=== PATIENT | male | born 1965 | race American Indian/Alaskan Native ===

== ENCOUNTER 2018-01-04 19:41 | Emergency (ER) | payer BC ==
[2018-01-04 20:04] VITALS: BP 134/77; PULSE 83; RESP 16; TEMP 98.6; O2SAT 95; BMI 30.9
--- NOTE | 2018-01-04 20:25 | ED PDOC ---
Arrival/HPI - General Chief Complaint: Flu-like Symptoms Time Seen by Provider: 01/04/18 19:48 Historian: Patient - History of Present Illness Narrative History of Present Illness (Text): 01/04/18 20:25 A 52 year old male, whose past medical history includes type 2 diabetes, presents to the emergency department complaining of flu-like symptoms for the past few days. Patient reports chills, body aches, congestion, cough, sore throat and headache. He notes an episode of dizziness and blurry vision earlier , which has resolved. Patient reports decrease appetite but states he has been drinking plenty of fluids. Patient denies any fever, nausea, vomiting, abdominal pain, chest pain, shortness of breath or any other complaints. PMD: Dr. Zhao Time/Duration: Other (few days) Symptom Course: Unchanged Context: Home Past Medical History - Provider Review Nursing Documentation Reviewed: Yes - Endocrine/Metabolic Hx Diabetes Mellitus Type 2: Yes - Psychiatric Hx Substance Use: No Family/Social History - Physician Review Nursing Documentation Reviewed: Yes Family/Social History: No Known Family HX Smoking Status: Never Smoked Hx Alcohol Use: No Hx Substance Use: No Allergies/Home Meds Allergies/Adverse Reactions: Allergies morphine Allergy (Verified 01/04/18 20:02) RASH peanut Allergy (Verified 01/04/18 20:02) RASH Home Medications: Home Meds Medication Instructions Recorded Confirmed Aspirin [Adult Low Dose Aspirin EC] 81 mg PO DAILY 06/26/16 06/26/16 Canagliflozin/Metformin HCl 1 tab PO BID 06/26/16 06/26/16 [Invokamet 50-500 mg Tablet] Pravastatin Sodium [Pravachol] 20 mg PO DAILY 06/26/16 06/26/16 Review of Systems - Physician Review All systems were reviewed & negative as marked: Yes - Review of Systems Constitutional: Night Sweats. absent: Fevers Eyes: Vision Changes (blurry vision in left eye, which has resolved) ENT: Sore Throat, Sinus Congestion Respiratory: Cough. absent: SOB Cardiovascular: absent: Chest Pain Gastrointestinal: Appetite Changes. absent: Abdominal Pain, Nausea, Vomiting Musculoskeletal: Myalgias Neurological: Headache Physical Exam Vital Signs Reviewed: Yes Vital Signs Temp Pulse Resp BP Pulse Ox 01/04/18 20:01 98.6 F 83 16 134/77 95 Temperature: Afebrile Blood Pressure: Normal Pulse: Regular Respiratory Rate: Normal Appearance: Positive for: Well-Appearing, Non-Toxic, Comfortable Pain Distress: None Mental Status: Positive for: Alert and Oriented X 3 - Systems Exam Head: Present: Atraumatic, Normocephalic Pupils: Present: PERRL, Other (Visual Acuity 20/20 b/l with glasses) Extroacular Muscles: Present: EOMI Conjunctiva: Present: Normal Ears: Present: Normal, NORMAL TM, Normal Canal. No: Erythema, TM Bulging, Fluid , TM Perf Mouth: Present: Moist Mucous Membranes Pharnyx: Present: Other (post nasal drip). No: ERYTHEMA, EXUDATE, TONSILS ENLARGED Nose (Internal): Present: Other (nasal congestion) Neck: Present: Normal Range of Motion Respiratory/Chest: Present: Clear to Auscultation, Good Air Exchange. No: Respiratory Distress, Accessory Muscle Use Cardiovascular: Present: Regular Rate and Rhythm, Normal S1, S2. No: Murmurs Abdomen: Present: Normal Bowel Sounds. No: Tenderness, Distention, Peritoneal Signs Upper Extremity: Present: Normal Inspection. No: Cyanosis, Edema Lower Extremity: Present: Normal Inspection. No: Edema Neurological: Present: GCS=15, CN II-XII Intact, Speech Normal Skin: Present: Warm, Dry, Normal Color. No: Rashes Psychiatric: Present: Alert, Oriented x 3, Normal Insight, Normal Concentration Medical Decision Making ED Course and Treatment: 01/04/18 20:25 Impression: A 52 year old male with chills, body aches, cough, congestion, sore throat and headache Differential Diagnosis included but are not limited to: Influenza Plan: -- Chest xray -- Tamiflu and Robitussin -- Reassess and disposition Progress Notes: Centor score of 0. No indication for antibiotic for sore throat. Plan is to start on Tamiflu, due to diabetic history and symptoms. 01/04/18 22:23 CXR negative for PNA. Feeling a little better. Will have patient f/u with PMD. Advised to return to the ED if symptoms worsen or any other concerns. 01/04/18 22:24 Orthostatics normal. - Lab Interpretations Lab Results: Lab Results 01/04/18 20:44: POC Glucose (mg/dL) 252 H - RAD Interpretation Radiology Orders: 01/04/18 20:26 CXR [CHEST TWO VIEWS (PA/LAT)] [RAD] Stat - Medication Orders Current Medication Orders: Discontinued Medications Guaifenesin/Dextromethorphan (Robitussin Dm) 10 ml PO STAT STA Stop: 01/04/18 20:28 Last Admin: 01/04/18 20:47 Dose: 10 ml Oseltamivir Phosphate (Tamiflu Cap) 75 mg PO STAT STA PRN Reason: Protocol Stop: 01/04/18 20:27 Last Admin: 01/04/18 20:45 Dose: 75 mg - Scribe Statement The provider has reviewed the documentation as recorded by the Scribe Amber Epperson Provider Scribe Attestation: All medical record entries made by the Scribe were at my direction and personally dictated by me. I have reviewed the chart and agree that the record accurately reflects my personal performance of the history, physical exam, medical decision making, and the department course for this patient. I have also personally directed, reviewed, and agree with the discharge instructions and disposition. Disposition/Present on Arrival - Present on Arrival Any Indicators Present on Arrival: No History of DVT/PE: No History of Uncontrolled Diabetes: No Urinary Catheter: No History of Decub. Ulcer: No History Surgical Site Infection Following: None - Disposition Have Diagnosis and Disposition been Completed?: Yes Diagnosis: Influenza Disposition: HOME/ ROUTINE Disposition Time: 21:01 Patient Plan: Discharge Patient Problems: Current Active Problems Problem Status Onset Influenza Acute Condition: IMPROVED Discharge Instructions (ExitCare): Flu, Adult (DC) Additional Instructions: Mr Reno, thank you for letting us take care of you today. Your provider was Dr. Alcaraz. You were treated for Influenza-like illness. The emergency medical care you received today was directed at your acute symptoms. If you were prescribed any medication, please fill it and take as directed. It may take several days for your symptoms to resolve. Return to the Emergency Department if your symptoms worsen, do not improve, or if you have any other problems. Please contact your doctor or call one of the physicians/clinics you have been referred to that are listed on the Patient Visit Information form that is included in your discharge packet. Bring any paperwork you were given at discharge with you along with any medications you are taking to your follow up visit. Our treatment cannot replace ongoing medical care by a primary care provider (PCP) outside of the emergency department. Thank you for allowing the [facility] team to be part of your care today. If you had an X-Ray or CT scan: A Radiologist will review the ED reading if any change in treatment is needed we will contact you. If you had a blood, urine, or wound culture: It will take several days for the results, if any change in treatment is needed we will contact you. If you had an STI test: It will take 48 hours for the results. Please call after 1 week if you have not heard back. Prescriptions: guaiFENesin/Dextromethorphan [guaiFENesin-DM] 10 ml PO Q8 #1 bottle Oseltamivir Phosphate [Tamiflu] 75 mg PO BID #10 capsule Referrals: Ravi Zhao MD [Primary Care Provider] - Follow up with primary Forms: [employer] ([place]), WORK NOTE
[2018-01-04] MEDS ORDERED: guaiFENesin DM 200 mg-20 mg/10 ml UD PO STA (20:27)
--- NOTE | 2018-01-05 08:46 | RAD ---
HISTORY: Cough, pneumonia. COMPARISON: No prior. TECHNIQUE: Chest PA and lateral FINDINGS: LUNGS: No active pulmonary disease. PLEURA: No significant pleural effusion identified. No pneumothorax apparent. CARDIOVASCULAR: Normal. OSSEOUS STRUCTURES: No significant abnormalities. VISUALIZED UPPER ABDOMEN: Normal. OTHER FINDINGS: None. IMPRESSION: No active disease. Concordant results with the preliminary interpretation rendered by the emergency department physician procedure.
== END 2018-01-04 21:47 | disposition home or self-care (01) ==
LOC: ED 19:41
DX: J11.1 Influenza due to unidentified influenza virus with other respiratory manifestations (principal); E11.9 Type 2 diabetes mellitus without complications

== ENCOUNTER 2018-02-01 09:28 | Emergency (ER) | payer BC ==
[2018-02-01 09:32] VITALS: BMI 30.9
--- NOTE | 2018-02-01 10:12 | ED PDOC ---
Arrival/HPI - General Chief Complaint: GI Problem Time Seen by Provider: 02/01/18 09:35 Historian: Patient - History of Present Illness Narrative History of Present Illness (Text): 02/01/18 10:08 52yo male with Past medical history of NIDDM who present with complaint of nausea, nonbloody/bilious vomiting x 3 and diarrhea since this morning. Also report right shoulder blade pain with deep inspiration since this morning. states mild epigastric pain and blade pain started while vomiting. Reports mild intermittent dry cough, that has been going on for weeks now. He states he was treated for flu here last month. He denies dizziness, chest pain, shortness of breath, fever, chills, urinary symptoms, sick contact, travel, any other complaint. Past Medical History - Provider Review Nursing Documentation Reviewed: Yes - Cardiac Hx Cardiac Disorders: Yes - Pulmonary Hx Respiratory Disorders: No - Neurological Hx Neurological Disorder: No - HEENT Hx HEENT Disorder: No - Renal Hx Renal Disorder: No - Endocrine/Metabolic Hx Endocrine Disorders: Yes Hx Diabetes Mellitus Type 2: Yes - Hematological/Oncological Hx Blood Disorders: No - Integumentary Hx Dermatological Disorder: No - Musculoskeletal/Rheumatological Hx Musculoskeletal Disorders: No - Gastrointestinal Hx Gastrointestinal Disorders: No - Genitourinary/Gynecological Hx Genitourinary Disorders: No - Psychiatric Hx Psychophysiologic Disorder: No Hx Substance Use: No - Surgical History Other/Comment: VASECTOMY Family/Social History - Physician Review Nursing Documentation Reviewed: Yes Family/Social History: Unknown Family HX Smoking Status: Never Smoked Hx Alcohol Use: No Hx Substance Use: No Allergies/Home Meds Allergies/Adverse Reactions: Allergies morphine Allergy (Verified 02/01/18 09:33) RASH peanut Allergy (Verified 02/01/18 09:33) RASH Home Medications: Home Meds Medication Instructions Recorded Confirmed Canagliflozin/Metformin HCl 1 tab PO BID 06/26/16 02/01/18 [Invokamet 50-500 mg Tablet] Pravastatin Sodium [Pravachol] 20 mg PO DAILY 06/26/16 02/01/18 Review of Systems - Physician Review All systems were reviewed & negative as marked: Yes - Review of Systems Constitutional: Normal Eyes: Normal ENT: Normal Respiratory: Normal Cardiovascular: Normal Gastrointestinal: Abdominal Pain, Diarrhea, Nausea, Vomiting. absent: Constipation, Hematochezia, Hematemesis Genitourinary Male: Normal Musculoskeletal: Back Pain Skin: Normal Neurological: Normal Endocrine: Normal Hemo/Lymphatic: Normal Psychiatric: Normal Physical Exam Vital Signs Reviewed: Yes Vital Signs Temp Pulse Resp BP Pulse Ox 02/01/18 13:40 98 F 80 18 112/76 99 02/01/18 11:30 78 18 121/77 99 02/01/18 09:44 98.6 F 99 H 17 131/81 95 Temperature: Afebrile Blood Pressure: Normal Pulse: Regular Respiratory Rate: Normal Appearance: Positive for: Well-Appearing, Non-Toxic, Comfortable Pain Distress: None Mental Status: Positive for: Alert and Oriented X 3 - Systems Exam Head: Present: Atraumatic, Normocephalic Pupils: Present: PERRL Extroacular Muscles: Present: EOMI Conjunctiva: Present: Normal Mouth: Present: Moist Mucous Membranes Neck: Present: Normal Range of Motion Respiratory/Chest: Present: Clear to Auscultation, Good Air Exchange. No: Respiratory Distress, Accessory Muscle Use, Wheezes, Decreased Breath Sounds, Rales, Retracting, Rhonchi, Tachypneic Cardiovascular: Present: Regular Rate and Rhythm, Normal S1, S2. No: Murmurs Abdomen: Present: Other (soft). No: Tenderness, Distention, Peritoneal Signs, Rebound, Guarding, McBurney's Point Tender, Rovsing's Sign Present Back: Present: Paraspinal Tenderness (Right parathoracic/scapular). No: Midline Tenderness, Pain with Leg Raise Upper Extremity: Present: Normal Inspection. No: Cyanosis, Edema Lower Extremity: Present: Normal Inspection. No: Edema Neurological: Present: GCS=15, CN II-XII Intact, Speech Normal Skin: Present: Warm, Dry, Normal Color. No: Rashes Psychiatric: Present: Alert, Oriented x 3, Normal Insight, Normal Concentration Medical Decision Making ED Course and Treatment: 02/01/18 19:41 Pt presented for stated history. He was hemodynamically stable in Emergency department. He was noted tolerated PO fluid in Emergency department. His lab was reviewed without leukocytosis. His BS was 267 and he was hydrated with a liter of NS. He did not take his hypoglycemics and was advised to take it at home. Thoracic spine - Negative chest xray - NAD All result was DW the pt. He was DC home with Zofran, pepcid and ibuprofen for MS pain. Advised to follow BLAND diet. Referred to his PMD. - Lab Interpretations Lab Results: 02/01/18 11:25 02/01/18 11:25 Lab Results 02/01/18 11:25: Sodium 138, Potassium 4.3, Chloride 100, Carbon Dioxide 27, Anion Gap 16, BUN 17, Creatinine 0.9, Est GFR ( Amer) > 60, Est GFR (Non- Af Amer) > 60, Random Glucose 256 H, Calcium 10.3, Total Bilirubin 0.6, AST 39, ALT 54, Alkaline Phosphatase 60, Lactate Dehydrogenase 394, Total Creatine Kinase 265 H, CK-MB (CK-2) 2.3, CK-MB (CK-2) % Cancelled, Troponin I < 0.01, Total Protein 7.6, Albumin 4.5, Globulin 3.1, Albumin/Globulin Ratio 1.4, Amylase 62, Lipase 199 02/01/18 11:25: PT 10.9, INR 0.95, APTT 27.8 02/01/18 11:25: WBC 10.8, RBC 5.19, Hgb 15.6, Hct 45.3, MCV 87.3, MCH 30.1, MCHC 34.4, RDW 13.8, Plt Count 184, MPV 11.3 H, Gran % 84.2 H, Lymph % (Auto) 9.2 L, Eagle % (Auto) 5.9, Eos % (Auto) 0.6 L, Baso % (Auto) 0.1, Gran # 9.06 H, Lymph # (Auto) 1.0 L, Eagle # (Auto) 0.6, Eos # (Auto) 0.1, Baso # (Auto) 0.01 - RAD Interpretation Radiology Orders: 02/01/18 10:15 CHEST TWO VIEWS (PA/LAT) [RAD] Stat DORSAL (THORACIC) SPINE [RAD] Stat - Medication Orders Current Medication Orders: Discontinued Medications Famotidine (Pepcid) 20 mg IVP STAT STA Stop: 02/01/18 10:14 Last Admin: 02/01/18 11:00 Dose: 20 mg IVP Administration Document 02/01/18 11:00 BRETT (Rec: 02/01/18 11:16 BRETT [id number]) Charges for Administration # of IVP Administrations 1 Sodium Chloride (Sodium Chloride 0.9%) 1,000 mls @ 999 mls/hr IV .Q1H1M STA Stop: 02/01/18 11:14 Last Admin: 02/01/18 10:50 Dose: 999 mls/hr eMAR Start Stop Document 02/01/18 10:50 SZA (Rec: 02/01/18 11:17 BRETT [email or web address]) Intravenous Solution Start Date 02/01/18 Start Time 10:50 End Date 02/01/18 End time 11:50 Total Infusion Time 60 Ketorolac Tromethamine (Toradol) 30 mg IVP STAT STA Stop: 02/01/18 13:14 Last Admin: 02/01/18 13:30 Dose: [address] [facility] Pain Assessment Document 02/01/18 13:30 SZA (Rec: 02/01/18 14:18 BRETT [id number]) Pain Reassessment Is this a pain reassessment? No Sleep Is patient sleeping during reassessment? No Presence of Pain Presence of Pain Yes IVP Administration Document 02/01/18 13:30 SZA (Rec: 02/01/18 14:18 BRETT [email or web address]) Charges for Administration # of IVP Administrations 1 Re-Assess: [facility] Pain Assessment Document 02/01/18 14:30 SZA (Rec: 02/01/18 14:55 BRETT [email or web address]) Pain Reassessment Is this a pain reassessment? No Sleep Is patient sleeping during reassessment? No Presence of Pain Presence of Pain No Ondansetron HCl (Zofran Inj) 4 mg IVP STAT STA Stop: 02/01/18 10:14 Last Admin: 02/01/18 11:00 Dose: 4 mg IVP Administration Document 02/01/18 11:00 SZA (Rec: 02/01/18 11:15 BRETT [email or web address]) Charges for Administration # of IVP Administrations 1 Disposition/Present on Arrival - Present on Arrival Any Indicators Present on Arrival: No History of DVT/PE: No History of Uncontrolled Diabetes: Yes Urinary Catheter: No History of Decub. Ulcer: No History Surgical Site Infection Following: None - Disposition Have Diagnosis and Disposition been Completed?: Yes Diagnosis: Nausea vomiting and diarrhea, Thoracic back sprain Disposition: HOME/ ROUTINE Disposition Time: 13:20 Patient Plan: Discharge Condition: STABLE Discharge Instructions (ExitCare): Acute Abdomen (Belly Pain), Nausea and Vomiting, Adult (DC) Additional Instructions: Follow BLAND diet for 24hrs Follow up with your Doctor Return to Emergency department for any new or worsening symptoms Prescriptions: Benzonatate [Tessalon Perle] 100 mg PO TID #20 capsule Famotidine [Pepcid] 40 % PO DAILY #10 tab Ibuprofen [Motrin Tab] 600 mg PO Q6 #15 tab Ondansetron ODT [Zofran ODT] 4 mg PO Q6 #6 odt Referrals: Ravi Zhao MD [Primary Care Provider] - Follow up with primary Forms: [employer] ([place]), WORK NOTE
[2018-02-01] MEDS ORDERED: Sodium Chloride 0.9% 1,000 ML IV STA (10:14)
[2018-02-01 11:30] LABS: BASO # 0.01 K/mm3 (0.0-2.0); BASO % 0.1 % (0.0-3.0); EOS # 0.1 (0.0-0.7); EOS % 0.6 % (1.5-5.0); GRAN # 9.06 (1.4-6.5); GRAN % 84.2 % (50.0-68.0); HEMOGLOBIN 15.6 g/dL (14.0-18.0); LYMPH % 9.2 % (22.0-35.0); MEAN CELL VOLUME 87.3 fl (80.0-105.0); MEAN CORPUSCULAR HEMOGLOBIN 30.1 pg (25.0-35.0); MEAN CORPUSCULAR HGB CONC 34.4 g/dl (31.0-37.0); MEAN PLATELET VOLUME 11.3 fl (7.0-11.0); MONO # 0.6 (0.1-0.6); MONO % 5.9 % (1.0-6.0); RBC 5.19 10^6/uL (3.5-6.1); RED CELL DISTRIBUTION WIDTH 13.8 % (11.5-14.5); WHITE BLOOD COUNT 10.8 10^3/ul (4.5-11.0)
[2018-02-01 11:42] LABS: INR 0.95 (0.93-1.08); PARTIAL THROMBOPLASTIN TIME 27.8 Seconds (25.1-36.5); PROTHROMBIN TIME 10.9 SECONDS (9.4-12.5)
[2018-02-01 11:44] LABS: ALB/GLOB RATIO 1.4 (1.1-1.8); ALBUMIN 4.5 g/dL (3.0-4.8); ALT/SGPT 54 U/L (7-56); AMYLASE 62 U/L (35-125); AST/SGOT 39 U/L (17-59); BLOOD UREA NITROGEN 17 mg/dL (7-21); CALCIUM 10.3 mg/dL (8.4-10.5); GFR AFRICAN-AMERICAN > 60; GFR NON-AFRICAN AMERICAN > 60; LIPASE 199 U/L (23-300)
[2018-02-01 11:56] LABS: TROPONIN I < 0.01 ng/mL
[2018-02-01 12:00] LABS: CK-MB 2.3 ng/mL (0.0-3.6)
--- NOTE | 2018-02-01 13:10 | RAD ---
HISTORY: cough COMPARISON: No prior. TECHNIQUE: Chest PA and lateral FINDINGS: LUNGS: No acute infiltrate bilaterally. Trace linear atelectasis or fibrosis in the inferior left lung zone laterally. PLEURA: No significant pleural effusion identified. No pneumothorax apparent. CARDIOVASCULAR: Normal. OSSEOUS STRUCTURES: No significant abnormalities. VISUALIZED UPPER ABDOMEN: Normal. OTHER FINDINGS: None. IMPRESSION: Trace linear atelectasis or fibrosis inferior left lung zone laterally. No acute infiltrate or pleural effusion bilaterally.
--- NOTE | 2018-02-01 13:11 | RAD ---
HISTORY: back pain COMPARISON: No prior. FINDINGS: BONES: Alignment maintained. No fracture or spondylolisthesis. DISC SPACES: Normal. SOFT TISSUES: Normal. OTHER FINDINGS: Incidental surgical clips right upper quadrant abdomen. IMPRESSION: Normal radiographs of the thoracic spine.
[2018-02-01 14:54] VITALS: RESP 18; O2SAT 99
[2018-02-01 14:55] VITALS: BP 112/76; PULSE 80; TEMP 98
== END 2018-02-01 14:30 | disposition home or self-care (01) ==
LOC: ED 09:28
DX: R19.7 Diarrhea, unspecified (principal); R11.2 Nausea with vomiting, unspecified; S23.3XXA Sprain of ligaments of thoracic spine, initial encounter; X58.XXXA Exposure to other specified factors, initial encounter; E11.9 Type 2 diabetes mellitus without complications
CPT/HCPCS: 71046; 72070; 80053; 82150; 82550; 82553; 83615; 83690; 84484; 85025; 85610; 85730; 96361; 96374; 96375; 99283; J1885; J2405; J7040